=== PATIENT | male | born 1980 | race African-American/Black ===

== ENCOUNTER 2017-02-11 11:32 | Emergency (ER) | payer OTHER ==
[~2017-02-11] VITALS: Ht 182.9 cm; Wt 77.1 kg
[2017-02-11 11:32] VITALS: BP_SYST 138
[2017-02-11 12:13] LABS: BASOPHILS # (AUTO) 0.3 K/uL (0.0-0.2); EOSINOPHILS % (AUTO) 0.1 % (0.0-4.0); HEMOGLOBIN 15.2 g/dL (14.0-18.0); MONOCYTES # (AUTO) 0.5 K/uL (0.0-1.0); WHITE BLOOD COUNT (AUTO) 8.4 K/uL (4.8-10.8)
[2017-02-11 12:17] LABS: CALCIUM 10.1 mg/dL (8.4-11.0); CREATININE 1.07 mg/dL (0.55-1.30)
[2017-02-11 12:22] LABS: ALBUMIN 4.7 g/dL (3.4-4.8); TOTAL BILIRUBIN 0.5 mg/dL (0.0-1.0); TOTAL PROTEIN, SERUM 8.9 g/dL (6.4-8.3)
[2017-02-11 12:27] LABS: BASOPHILS % (AUTO) 3.3 % (0.0-2.0); HEMATOCRIT 47.5 % (36-54); LYMPHOCYTES # (AUTO) 0.8 K/uL (1.0-5.5); MEAN CORPUSCULAR HEMOGLOBIN 28 pg (27-31); MEAN CORPUSCULAR HGB CONC 32 % (32-36); MEAN CORPUSCULAR VOLUME 88 fL (79.0-98.0); MONOCYTES % (AUTO) 6.4 % (1.7-9.3); NEUTROPHILS # (AUTO) 6.8 K/uL (1.8-7.7); NEUTROPHILS % (AUTO) 80.2 % (40.0-70.0); PLATELET COUNT (AUTO) 346 K/uL (130-430); RED BLOOD CELL COUNT(AUTO) 5.42 MIL/uL (4.2-6.2); RED CELL DISTRIBUTION WIDTH 12.3 % (9.0-15.0)
[2017-02-11] MEDS ORDERED: KETOROLAC TROMETHAMINE 30 MG VIAL IVP ONE (14:00)
[2017-02-11] MEDS ORDERED: ALBUTEROL SULFATE 0.083% 2.5 MG/3 ML VIAL.NEB INH ONE ×2 (14:00→14:30)
[2017-02-11] MEDS ORDERED: PROCHLORPERAZINE EDISYLATE 10 MG/2 ML VIAL IVP ONE (14:00)
[2017-02-11] MEDS ORDERED: IPRATROPIUM BROM 0.5 MG/2.5 ML VIAL.NEB (ATROVENT) INH ONE (14:30)
[2017-02-11] MEDS ORDERED: NACL 0.9% 1,000 ML IV ONE (14:30)
[2017-02-11] MEDS ORDERED: DOXYCYCLINE HYCLATE 100 MG CAPSULE PO ONE (14:30)
[2017-02-11] MEDS ORDERED: methylPREDNISolone SOD SUCC/PF 62.5 MG/ML VIAL IVP ONE (14:30)
[2017-02-11] MEDS ORDERED: LORazepam 2 MG/ML VIAL (FOR ER USE) IVP ONE (14:45)
[2017-02-11] MEDS ORDERED: D5LR 1,000 ML IV SCH (16:30)
[2017-02-11 18:05] VITALS: BP_SYST 128
== END 2017-02-11 18:05 | disposition left against medical advice (07) ==
LOC: SED 11:32 → STU 16:20 → UNDODISIN 16:20 → UNDOADMIN 16:20 → STU 18:05
DX: K52.9 Noninfective gastroenteritis and colitis, unspecified (principal); J45.901 Unspecified asthma with (acute) exacerbation; Z88.5 Allergy status to narcotic agent; Z88.6 Allergy status to analgesic agent
CPT/HCPCS: 36415; 71020; 74176; 80053; 85025; 94640; 96361; 96374; 96375; 99285; J0780; J2930; J7030; J1885

== ENCOUNTER 2019-03-29 13:37 | Inpatient (IN) | payer OTHER ==
[~2019-03-29] VITALS: Ht 177.8 cm; Wt 74.8 kg
[2019-03-29 14:00] VITALS: BP_SYST 168
[2019-03-29] MEDS ORDERED: NACL 0.9% 1,000 ML IV ONE ×2 (14:45→18:00)
[2019-03-29] MEDS ORDERED: ONDANSETRON HCL 4 MG/2 ML VIAL IVP ONE (14:45)
[2019-03-29] MEDS ORDERED: MORPHINE 4 MG/ML INJ. SYRINGE IVP ONE ×2 (15:30→17:15)
[2019-03-29 15:45] LABS: BASOPHILS % (AUTO) 0.3 % (0.0-2.0); HEMOGLOBIN 13.2 g/dL (14.0-18.0); LYMPHOCYTES # (AUTO) 0.5 K/uL (1.0-5.5); MEAN CORPUSCULAR HEMOGLOBIN 30 pg (27-31); MEAN CORPUSCULAR HGB CONC 33 % (32-36); MEAN CORPUSCULAR VOLUME 90 fL (79.0-98.0); MONOCYTES # (AUTO) 0.5 K/uL (0.0-1.0); MONOCYTES % (AUTO) 4.2 % (1.7-9.3); NEUTROPHILS % (AUTO) 91.5 % (40.0-70.0); PLATELET COUNT (AUTO) 443 K/uL (130-430); RED BLOOD CELL COUNT(AUTO) 4.47 MIL/uL (4.2-6.2); RED CELL DISTRIBUTION WIDTH 13.2 % (9.0-15.0); WHITE BLOOD COUNT (AUTO) 12.1 K/uL (4.8-10.8)
[2019-03-29] MEDS ORDERED: METOCLOPRAMIDE HCL 10 MG/2 ML VIAL IVP ONE (15:45)
[2019-03-29 15:56] LABS: CREATININE 0.91 mg/dL (0.55-1.30); POTASSIUM 4.4 mmol/L (3.5-5.1)
[2019-03-29 16:02] LABS: ALBUMIN 4.5 g/dL (3.4-4.8); TOTAL BILIRUBIN 0.4 mg/dL (0.0-1.0)
[2019-03-29] MEDS ORDERED: IBUPROFEN 800 MG TABLET PO ONE (18:00)
[2019-03-29 18:13] LABS: BILIRUBIN,URINE 1+ (NEGATIVE); BLOOD, URINE 3+ (NEGATIVE); CLARITY/URINE CLEAR (CLEAR); COLOR,URINE YELLOW (YELLOW); GLUCOSE,URINE NEGATIVE (NEGATIVE); KETONES,URINE 2+ (NEGATIVE); LEUKOCYTE ESTERASE ,URINE NEGATIVE (NEGATIVE); NITRITE, URINE NEGATIVE (NEGATIVE); PROTEIN URINE 2+ (NEGATIVE); UROBILINOGEN,URINE 0.2 (0.2-1.0)
[2019-03-29 18:27] LABS: BACTERIA,URINE FEW /HPF (None Seen); HYALINE CASTS, URINE 0-10 /LPF (None Seen); WBC,URINE 0-3 /HPF (0-3)
[2019-03-29] MEDS ORDERED: ALBU2.5V7 INH (18:28)
[2019-03-29] MEDS ORDERED: ALBU8.5H8 INH (18:28)
[2019-03-29] MEDS ORDERED: CIPROFLOXACIN HCL 500 MG TABLET PO ONE (18:45)
[2019-03-29] MEDS ORDERED: metroNIDAZOLE 500 MG TABLET PO ONE (18:45)
[2019-03-29 19:54] VITALS: BP_SYST 159
[2019-03-29 20:00] VITALS: BP_SYST 159
[2019-03-29] MEDS ORDERED: HYDROcodone/ACETAMIN 5-325 MG TAB (NORCO/ VICODIN) PO PRN (20:45)
[2019-03-29] MEDS ORDERED: HYDROcodone/ACETAMIN 10-325 MG TAB PO PRN (20:45)
[2019-03-29] MEDS ORDERED: ALBUTEROL MDI INHALATION 8 GM INH INH PRN (20:45)
[2019-03-29] MEDS ORDERED: ALBUTEROL SULFATE 0.083% 2.5 MG/3 ML VIAL.NEB INH PRN (20:45)
[2019-03-29] MEDS ORDERED: ACETAMINOPHEN 325 MG TABLET PO PRN (20:45)
[2019-03-29] MEDS ORDERED: LORazepam 2 MG/ML VIAL IVP PRN (20:45)
[2019-03-29 20:52] VITALS: BP_SYST 159
[2019-03-29] MEDS: ONDANSETRON HCL 4 MG/2 ML VIAL IVP PRN (21:05)
[2019-03-29] MEDS: MORPHINE 2 MG/ML INJ. SYRINGE IVP PRN (21:06)
[2019-03-29] MEDS: D5/0.45 NS 1,000 ML IV SCH (21:10)
[2019-03-29] MEDS ORDERED: metroNIDAZOLE 500 mg/NS 200 ML IV ONE (21:40)
[2019-03-29] MEDS ORDERED: CIPROFLOXACIN LACT 400 MG/D5W 200 ML IV ONE (21:41)
[2019-03-29] MEDS: CIPROFLOXACIN LACT 400 MG/D5W 200 ML IV SCH (22:12)
[2019-03-29] MEDS: metroNIDAZOLE 500 mg/NS 100 ML IV SCH (23:16)
[2019-03-30] MEDS: ONDANSETRON HCL 4 MG/2 ML VIAL IVP PRN ×3 (01:28→14:09)
[2019-03-30] MEDS: MORPHINE 2 MG/ML INJ. SYRINGE IVP PRN ×6 (01:28→22:02)
[2019-03-30 05:29] VITALS: BP_SYST 136
[2019-03-30] MEDS: D5/0.45 NS 1,000 ML IV SCH ×2 (05:40→15:52)
[2019-03-30] MEDS: metroNIDAZOLE 500 mg/NS 100 ML IV SCH ×3 (05:40→21:31)
[2019-03-30 07:36] LABS: BASOPHILS % (AUTO) 0.2 % (0.0-2.0); EOSINOPHILS % (AUTO) 0.2 % (0.0-4.0); HEMATOCRIT 37.4 % (36-54); HEMOGLOBIN 12.5 g/dL (14.0-18.0); LYMPHOCYTES # (AUTO) 1.3 K/uL (1.0-5.5); LYMPHOCYTES % (AUTO) 12.6 % (20.5-51.5); MEAN CORPUSCULAR HEMOGLOBIN 30 pg (27-31); MEAN CORPUSCULAR HGB CONC 34 % (32-36); MEAN CORPUSCULAR VOLUME 90 fL (79.0-98.0); MONOCYTES # (AUTO) 0.8 K/uL (0.0-1.0); MONOCYTES % (AUTO) 8.5 % (1.7-9.3); NEUTROPHILS # (AUTO) 7.8 K/uL (1.8-7.7); NEUTROPHILS % (AUTO) 78.5 % (40.0-70.0); PLATELET COUNT (AUTO) 417 K/uL (130-430); RED BLOOD CELL COUNT(AUTO) 4.15 MIL/uL (4.2-6.2); RED CELL DISTRIBUTION WIDTH 13.4 % (9.0-15.0); WHITE BLOOD COUNT (AUTO) 9.9 K/uL (4.8-10.8)
[2019-03-30 07:48] LABS: ALANINE AMINOTRANSFERASE 11 U/L (12-78); ALBUMIN 3.9 g/dL (3.4-4.8); ANION GAP 10 (5-15); ASPARTATE AMINOTRANSFERASE 12 U/L (10-37); CALCIUM 9.5 mg/dL (8.4-11.0); CHLORIDE 107 mmol/L (98-107); CREATININE 0.88 mg/dL (0.55-1.30); GLUCOSE 115 mg/dL (70-99); POTASSIUM 3.7 mmol/L (3.5-5.1); SODIUM SERUM 142 mmol/L (136-145); TOTAL BILIRUBIN 0.4 mg/dL (0.0-1.0); UREA NITROGEN, BLOOD 7 mg/dL (8-21)
[2019-03-30 08:00] VITALS: BP_SYST 126
[2019-03-30 08:04] LABS: GFR AFRICAN AMERICAN 123 mL/min (>90)
[2019-03-30 08:30] LABS: C-REACTIVE PROTEIN QUANT < 0.2 mg/dL (0-0.5)
[2019-03-30] MEDS: CIPROFLOXACIN LACT 400 MG/D5W 200 ML IV SCH ×2 (09:00→21:30)
[2019-03-30 09:47] LABS: ERYTHROCYTE SEDIMENTATION RATE 5 MM/HR (0-15)
[2019-03-30 12:51] VITALS: BP_SYST 134
[2019-03-30 16:52] VITALS: BP_SYST 126
[2019-03-30 19:00] VITALS: BP_SYST 123
[2019-03-30 20:00] VITALS: BP_SYST 123
[2019-03-31] MEDS: D5/0.45 NS 1,000 ML IV SCH ×2 (01:30→05:29)
[2019-03-31] MEDS: MORPHINE 2 MG/ML INJ. SYRINGE IVP PRN ×2 (02:44→06:42)
[2019-03-31] MEDS: ONDANSETRON HCL 4 MG/2 ML VIAL IVP PRN (02:50)
[2019-03-31] MEDS: metroNIDAZOLE 500 mg/NS 100 ML IV SCH (05:30)
[2019-03-31 07:06] LABS: BASOPHILS % (AUTO) 0.3 % (0.0-2.0); EOSINOPHILS # (AUTO) 0.1 K/uL (0.0-0.4); EOSINOPHILS % (AUTO) 1.1 % (0.0-4.0); HEMATOCRIT 35.7 % (36-54); HEMOGLOBIN 12.1 g/dL (14.0-18.0); LYMPHOCYTES # (AUTO) 1.5 K/uL (1.0-5.5); LYMPHOCYTES % (AUTO) 17.9 % (20.5-51.5); MEAN CORPUSCULAR HEMOGLOBIN 30 pg (27-31); MEAN CORPUSCULAR HGB CONC 34 % (32-36); MEAN CORPUSCULAR VOLUME 89 fL (79.0-98.0); MONOCYTES # (AUTO) 0.6 K/uL (0.0-1.0); MONOCYTES % (AUTO) 7.3 % (1.7-9.3); NEUTROPHILS # (AUTO) 6.2 K/uL (1.8-7.7); NEUTROPHILS % (AUTO) 73.4 % (40.0-70.0); PLATELET COUNT (AUTO) 384 K/uL (130-430); RED BLOOD CELL COUNT(AUTO) 4.01 MIL/uL (4.2-6.2); RED CELL DISTRIBUTION WIDTH 13.4 % (9.0-15.0); WHITE BLOOD COUNT (AUTO) 8.5 K/uL (4.8-10.8)
[2019-03-31 07:30] LABS: C-REACTIVE PROTEIN QUANT < 0.2 mg/dL (0-0.5)
[2019-03-31 07:49] LABS: ANION GAP 11 (5-15); CALCIUM 9.5 mg/dL (8.4-11.0); CHLORIDE 107 mmol/L (98-107); CREATININE 0.94 mg/dL (0.55-1.30); GFR AFRICAN AMERICAN 114 mL/min (>90); GLUCOSE 103 mg/dL (70-99); POTASSIUM 3.5 mmol/L (3.5-5.1); SODIUM SERUM 142 mmol/L (136-145); UREA NITROGEN, BLOOD 8 mg/dL (8-21)
[2019-03-31] MEDS: CIPROFLOXACIN LACT 400 MG/D5W 200 ML IV SCH (08:09)
[2019-03-31 08:12] LABS: ERYTHROCYTE SEDIMENTATION RATE 2 MM/HR (0-15)
[2019-03-31 08:13] VITALS: BP_SYST 130
== END 2019-03-31 10:30 | disposition left against medical advice (07) | DRG 249 ==
LOC: SED 13:37 → SMU 18:53 → UNDOADMIN 18:53 → SMU 19:21
PROVIDERS: ADMIT Preventive Medicine Preventive Medicine/Occupational Environmental Medicine; ATTEND Preventive Medicine Preventive Medicine/Occupational Environmental Medicine
DX: A09 Infectious gastroenteritis and colitis, unspecified (principal); R65.10 Systemic inflammatory response syndrome (SIRS) of non-infectious origin without acute organ dysfunction; K50.90 Crohn's disease, unspecified, without complications; N20.0 Calculus of kidney; J45.909 Unspecified asthma, uncomplicated; G43.909 Migraine, unspecified, not intractable, without status migrainosus; R73.9 Hyperglycemia, unspecified; I10 Essential (primary) hypertension; Z53.21 Procedure and treatment not carried out due to patient leaving prior to being seen by health care provider; Z88.6 Allergy status to analgesic agent; Z88.8 Allergy status to other drugs, medicaments and biological substances; Z79.899 Other long term (current) drug therapy; Z90.49 Acquired absence of other specified parts of digestive tract; Z79.84 Long term (current) use of oral hypoglycemic drugs; Z87.11 Personal history of peptic ulcer disease
CPT/HCPCS: 36415; 76700-TC; 80048; 80053; 81000-TC; 83690-TC; 85025; 85651-TC; 86140; 87040-TC; 96361; 96374; 96375; 99285; J0744; J2270; J2405; J2765; J3490; J7030

== ENCOUNTER 2019-04-07 12:48 | Emergency (ER) | payer OTHER ==
[~2019-04-07] VITALS: Ht 177.8 cm; Wt 72.6 kg
[~2019-04-07 12:48] MED LIST: ALBU2.5V7 INH; ALBU8.5H8 INH
[2019-04-07 12:54] VITALS: BP_SYST 150
[2019-04-07] MEDS ORDERED: FAMOTIDINE PF 20 MG/2 ML VIAL IVP ONE (13:15)
[2019-04-07] MEDS ORDERED: DIPHENHYDRAMINE INJ 50 MG/ML VIAL IVP ONE (13:15)
[2019-04-07] MEDS ORDERED: methylPREDNISolone SOD SUCC/PF 62.5 MG/ML VIAL IVP ONE (13:15)
[2019-04-07] MEDS ORDERED: NACL 0.9% 1,000 ML IV ONE (13:15)
[2019-04-07 14:25] VITALS: BP_SYST 141
== END 2019-04-07 14:25 | disposition home or self-care (01) ==
LOC: SED 12:48
DX: L50.9 Urticaria, unspecified (principal); R03.0 Elevated blood-pressure reading, without diagnosis of hypertension; J45.909 Unspecified asthma, uncomplicated; G43.909 Migraine, unspecified, not intractable, without status migrainosus; Z88.6 Allergy status to analgesic agent; Z88.5 Allergy status to narcotic agent; Z79.899 Other long term (current) drug therapy
CPT/HCPCS: 96374; 96375; 99283; J1200; J2930; J3490; J7030

== ENCOUNTER 2019-05-09 18:58 | Emergency (ER) | payer OTHER ==
[~2019-05-09] VITALS: Ht 177.8 cm; Wt 74.8 kg
[2019-05-09 19:21] VITALS: BP_SYST 154
--- NOTE | 2019-05-09 19:24 | NUR ---
Pt placed to ER waiting room in stable condition.
--- NOTE | 2019-05-09 20:10 | NUR ---
Patient to ER bed 6 to gown for evaluation. Side rails up.
[2019-05-09] MEDS ORDERED: NACL 0.9% 1,000 ML IV ONE (20:20)
--- NOTE | 2019-05-09 20:20 | NUR ---
Dr. Singer bedside for Pt eval
[2019-05-09] MEDS ORDERED: ONDANSETRON HCL 4 MG/2 ML VIAL IVP ONE (20:30)
--- NOTE | 2019-05-09 20:30 | NUR ---
Pt BIB family to ED C/O non-radiating constant left upper quadrant abdominal pain since this morning. The pain is rated 9/10 intensity and described as sharp and throbbing. Pt further reports he has numerous non-bilious, non-bloody emesis today, too many to count. He is unable to hold anything down including liquids. Reports he had 3 episodes of watery, non-bloody diarrhea today. He states abdominal pain on 04/07/19 when he got admitted but is unsure whether it is due to pancreatitis this time. Per Pt, this abdominal pain started 2 years ago and occurs about every 6 months which became more frequent this year. No other complaints and or injuries noted. VSS no s/s of acute distress. Resting on gurney rails up
[2019-05-09 20:33] LABS: BASOPHILS % (AUTO) 0.5 % (0.0-2.0); HEMOGLOBIN 15.6 g/dL (14.0-18.0); LYMPHOCYTES # (AUTO) 0.7 K/uL (1.0-5.5); LYMPHOCYTES % (AUTO) 7.7 % (20.5-51.5); MEAN CORPUSCULAR HEMOGLOBIN 31 pg (27-31); MEAN CORPUSCULAR HGB CONC 34 % (32-36); MEAN CORPUSCULAR VOLUME 91 fL (79.0-98.0); MONOCYTES # (AUTO) 0.3 K/uL (0.0-1.0); MONOCYTES % (AUTO) 3.3 % (1.7-9.3); NEUTROPHILS # (AUTO) 8.4 K/uL (1.8-7.7); NEUTROPHILS % (AUTO) 88.5 % (40.0-70.0); PLATELET COUNT (AUTO) 391 K/uL (130-430); RED BLOOD CELL COUNT(AUTO) 5.05 MIL/uL (4.2-6.2); RED CELL DISTRIBUTION WIDTH 13.1 % (9.0-15.0); WHITE BLOOD COUNT (AUTO) 9.5 K/uL (4.8-10.8)
[2019-05-09 20:42] LABS: CALCIUM 10.4 mg/dL (8.4-11.0); CREATININE 1.04 mg/dL (0.55-1.30); POTASSIUM 3.9 mmol/L (3.5-5.1)
[2019-05-09 20:48] LABS: ALBUMIN 5.3 g/dL (3.4-4.8); TOTAL BILIRUBIN 0.4 mg/dL (0.0-1.0)
[2019-05-09] MEDS ORDERED: fentaNYL CITRATE/PF 100 MCG/2 ML AMP IVP ONE ×2 (21:00→22:45)
--- NOTE | 2019-05-09 21:45 | NUR ---
VSS no s/s of acute distress Resting on gurney rails up
--- NOTE | 2019-05-09 22:35 | NUR ---
Pt states feeling slightly better, but still feel dehydrated
[2019-05-10] MEDS ORDERED: MAG HYDROX/AL HYDROX/SIMETH 30 ML, DICYCLOMINE HCL 20 MG, LIDOCAINE VISCOUS 2% 15ML (PO... PO ONE ×3
--- NOTE | 2019-05-10 | NUR ---
Pt's family remains bedside for emotional support
[2019-05-10] MEDS ORDERED: NACL 0.9% 1,000 ML IV ONE (01:00)
[2019-05-10] MEDS ORDERED: ONDANSETRON 4 MG ODT TAB PO ONE (01:00)
--- NOTE | 2019-05-10 01:00 | NUR ---
Dr. Singer bedside for Pt update
[2019-05-10] MEDS ORDERED: ONDANSETRON HCL 4 MG/2 ML VIAL ONE (01:03)
[2019-05-10 02:00] VITALS: BP_SYST 142
--- NOTE | 2019-05-10 02:00 | NUR ---
VSS no s/s of acute distress Resting on gurney rails up
--- NOTE | 2019-05-10 02:00 | NUR ---
Patient given written and verbal discharge instructions and verbalizes understanding. ER MD discussed with patient the results and treatment provided. Patient in stable condition. ID arm band removed. IV catheter removed intact and dressing applied, no active bleeding. Rx of Percocet and Zofran given. Patient educated on pain management and to follow up with PMD. Pain Scale 0/10 Opportunity for questions provided and answered. Medication side effect fact sheet provided.
== END 2019-05-10 02:00 | disposition home or self-care (01) ==
LOC: SED 18:58
DX: R10.12 Left upper quadrant pain (principal); R11.10 Vomiting, unspecified; R19.7 Diarrhea, unspecified; J45.909 Unspecified asthma, uncomplicated; F12.90 Cannabis use, unspecified, uncomplicated; Z88.5 Allergy status to narcotic agent; Z88.6 Allergy status to analgesic agent
CPT/HCPCS: 36415; 74176; 80053; 83690; 85025; 96361 ×2; 96374; 96375; 96376; 99284; J2001; J2405 ×2; J3010; J7030 ×2; Q0162

== ENCOUNTER 2019-05-19 19:33 | Emergency (ER) | payer OTHER ==
[~2019-05-19] VITALS: Ht 177.8 cm; Wt 77.1 kg
[2019-05-19 20:48] VITALS: BP_SYST 109
== END 2019-05-19 23:22 | disposition left against medical advice (07) ==
LOC: SED 19:33
DX: R21 Rash and other nonspecific skin eruption (principal); Z53.21 Procedure and treatment not carried out due to patient leaving prior to being seen by health care provider

== ENCOUNTER 2019-07-03 16:24 | Emergency (ER) | payer OTHER ==
[~2019-07-03] VITALS: Ht 177.8 cm; Wt 74.8 kg
[2019-07-03 16:25] VITALS: BP_SYST 141
[2019-07-03] MEDS ORDERED: KETOROLAC TROMETHAMINE 15 MG VIAL IVP ONE (17:15)
[2019-07-03] MEDS ORDERED: HALOPERIDOL LACTATE 5 MG/ML VIAL IVP ONE (17:15)
[2019-07-03] MEDS ORDERED: NACL 0.9% 1,000 ML IV ONE (17:15)
[2019-07-03 17:39] LABS: BASOPHILS % (AUTO) 0.4 % (0.0-2.0); HEMATOCRIT 42.8 % (36-54); HEMOGLOBIN 14.4 g/dL (14.0-18.0); LYMPHOCYTES # (AUTO) 0.7 K/uL (1.0-5.5); LYMPHOCYTES % (AUTO) 6.9 % (20.5-51.5); MEAN CORPUSCULAR HEMOGLOBIN 31 pg (27-31); MEAN CORPUSCULAR HGB CONC 34 % (32-36); MEAN CORPUSCULAR VOLUME 92 fL (79.0-98.0); MONOCYTES # (AUTO) 0.3 K/uL (0.0-1.0); MONOCYTES % (AUTO) 2.6 % (1.7-9.3); NEUTROPHILS # (AUTO) 9.1 K/uL (1.8-7.7); NEUTROPHILS % (AUTO) 90.1 % (40.0-70.0); PLATELET COUNT (AUTO) 408 K/uL (130-430); RED BLOOD CELL COUNT(AUTO) 4.64 MIL/uL (4.2-6.2); RED CELL DISTRIBUTION WIDTH 13.4 % (9.0-15.0); WHITE BLOOD COUNT (AUTO) 10.1 K/uL (4.8-10.8)
[2019-07-03 17:51] LABS: CALCIUM 10.5 mg/dL (8.4-11.0); CREATININE 0.84 mg/dL (0.55-1.30); POTASSIUM 3.9 mmol/L (3.5-5.1)
[2019-07-03 17:57] LABS: ALBUMIN 5.1 g/dL (3.4-4.8); TOTAL BILIRUBIN 0.3 mg/dL (0.0-1.0)
[2019-07-03 19:30] VITALS: BP_SYST 138
== END 2019-07-03 19:30 | disposition home or self-care (01) ==
LOC: SED 16:24
DX: F12.188 Cannabis abuse with other cannabis-induced disorder (principal); R11.2 Nausea with vomiting, unspecified
CPT/HCPCS: 36415; 80053; 83690; 85025; 93005; 96361; 96374; 96375; 99284; J1630; J1885; J7030

== ENCOUNTER 2021-02-03 16:50 | Emergency (ER) | payer OTHER ==
[~2021-02-03] VITALS: Ht 177.8 cm; Wt 74.8 kg
[2021-02-03 16:50] VITALS: BP_SYST 150
--- NOTE | 2021-02-03 16:50 | NUR ---
BROUGHT BACK TO BED #7 AND TRIAGED, REPORT GIVEN TO CARLINE
--- NOTE | 2021-02-03 17:03 | NUR ---
Placed in room 7 . Placed on cardiac cath rn, blood pressure machine and pulse oximeter. To gown for exam. Side rails up.
--- NOTE | 2021-02-03 17:05 | NUR ---
Pt walked in to ER with c/o right leg pain 9/10 x 4months. Denies any trauma. V/S stable, no acute distress noted.
--- NOTE | 2021-02-03 17:35 | NUR ---
KRZYSZTOF Griffith at bedside examining patient.
[2021-02-03] MEDS ORDERED: OXYCODONE/ACETAMINOPHEN 5-325 TABLET PO ONE (18:00)
[2021-02-03 18:31] VITALS: BP_SYST 150
--- NOTE | 2021-02-03 18:31 | NUR ---
Patient given written and verbal discharge instructions and verbalizes understanding. ER MD discussed with patient the results and treatment provided. Patient in stable condition. ID arm band removed. No prescriptions given. Patient educated on pain management and to follow up with PMD. Pain Scale 0. Opportunity for questions provided and answered. Medication side effect fact sheet provided.
== END 2021-02-03 18:31 | disposition home or self-care (01) ==
LOC: SED 16:50
DX: M71.21 Synovial cyst of popliteal space [Baker], right knee (principal); M21.611 Bunion of right foot; J45.909 Unspecified asthma, uncomplicated; Z88.5 Allergy status to narcotic agent; Z79.899 Other long term (current) drug therapy
CPT/HCPCS: 99283

== ENCOUNTER 2023-07-24 16:00 | Emergency (ER) | payer OTHER ==
[~2023-07-24] VITALS: Ht 177.8 cm; Wt 79.4 kg
[2023-07-24] MEDS ORDERED: IBUPROFEN 800 MG TABLET PO ONE (16:30)
[2023-07-24] MEDS ORDERED: HYDROcodone/ACETAMIN 5-325 MG TAB (NORCO/ VICODIN) PO ONE (16:30)
[2023-07-24 16:31] VITALS: BP_SYST 128; PULSE 96; RESP 18; TEMP 98.1; O2SAT 99
[2023-07-24] MEDS ORDERED: cephALEXin 500 MG CAPSULE ONE (17:28)
[2023-07-24] MEDS ORDERED: cephALEXin 500 MG CAPSULE PO ONE (17:30)
[2023-07-24] MEDS ORDERED: DICL20GE TP (17:32)
[2023-07-24] MEDS ORDERED: IBUP-1969 PO (17:32)
[2023-07-24] MEDS ORDERED: CEPH-548 PO (17:32)
== END 2023-07-24 17:47 | disposition home or self-care (01) ==
LOC: SED 16:00
DX: L03.012 Cellulitis of left finger (principal); J45.909 Unspecified asthma, uncomplicated; Z88.5 Allergy status to narcotic agent; Z88.6 Allergy status to analgesic agent; Z79.899 Other long term (current) drug therapy
CPT/HCPCS: 73140-TC; 99284